=== PATIENT | male | born 1995 | race Caucasian/White ===

== ENCOUNTER → 2017-10-11 | Outpatient (CLI) | payer BC ==
--- NOTE | 2017-10-11 10:50 | Diagnostic Imaging Report ---
PROCEDURE: MRI lumbar spine. TECHNIQUE: Multiplanar, multisequence MRI of the lumbar spine was performed without contrast. 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 No prior MRI study is available for comparison. FINDINGS: Curvature and alignment of the lumbar spine is normal. Vertebral body heights are maintained. The marrow signal intensity is unremarkable. No fracture or geographic marrow lesion is seen. There is normal height and signal intensity to the lumbar intervertebral discs. The conus is unremarkable at the T12-L1 level. L1-L2: No focal disc protrusion, central canal or neural foraminal stenosis is identified. L2-L3: Unremarkable. L3-L4: No focal disc protrusion is seen. There is some mild left far lateral annular bulging on the right and left resulting in very mild bilateral neural foraminal narrowing. L4-L5: Central canal is widely patent. There is very [id number] narrowing of the neural foramina bilaterally due to broad-based annular bulging bilaterally. L5-S1: Unremarkable. IMPRESSION: There appears to be a broad-based far lateral annular bulging on the right and left side at the L3-L4 and L4-L5 levels resulting in neural foraminal narrowing bilaterally at these 2 levels. No central canal stenosis is seen. No focal disc protrusion is identified. Dictated by: Dictated on workstation # [id number]
== END ==
LOC: RAD 09:59
PROVIDERS: ATTEND Nurse Practitioner Family
DX: M54.16 Radiculopathy, lumbar region (principal); G62.9 Polyneuropathy, unspecified
CPT/HCPCS: 72148